=== PATIENT | male | born 1970 | race Caucasian/White ===

== ENCOUNTER 2023-09-26 06:02 | Day surgery (SDC) | payer BC ==
[2023-09-25 10:03] VITALS: BMI 38.7
[2023-09-26] MEDS ORDERED: PROPOFOL 40 ML ONE (08:51)
[2023-09-26] MEDS ORDERED: Lidocaine 1% PF 5 ML VIAL ONE (08:51)
[2023-09-26] MEDS ORDERED: PROPOFOL 20 ML ONE (09:11)
== END 2023-09-26 09:47 | disposition home or self-care (01) ==
LOC: CSHSDC 06:02
PROVIDERS: ATTEND Internal Medicine Gastroenterology
PROC: 0DBL8ZX Excision of Transverse Colon, Via Natural or Artificial Opening Endoscopic, Diagnostic (ICD-10-PCS; principal; 2023-09-26)
PROC: 0DBE8ZX Excision of Large Intestine, Via Natural or Artificial Opening Endoscopic, Diagnostic (ICD-10-PCS; principal; 2023-09-26)
DX: Z12.11 Encounter for screening for malignant neoplasm of colon (principal); K63.5 Polyp of colon; K64.9 Unspecified hemorrhoids; I10 Essential (primary) hypertension; E66.9 Obesity, unspecified; Z88.0 Allergy status to penicillin; Z68.38 Body mass index [BMI] 38.0-38.9, adult; Z80.0 Family history of malignant neoplasm of digestive organs
CPT/HCPCS: 88305; J2704